=== PATIENT | female | born 1985 | race Caucasian/White ===

== ENCOUNTER 2018-10-22 09:03 | Emergency (ER) | payer BC ==
--- NOTE | 2018-10-22 09:19 | ED ---
Abdominal Pain/Female - HPI Summary HPI Summary: The patient is a 32 y/o F presenting to [facility] accompanied by with RLQ abdominal pain starting this morning at 0100. She reports that yesterday she was experiencing diffuse pain in the lower abdomen with chills and nausea that persisted throughout the night, and then early this morning she woke up with RLQ cramping pain. There was improvement in the pain throughout the night as around 0700 the cramping lessened more into a pressure, but the pain radiates to the right lower back. Currently, the pressure pain is rated 1/10 in severity. There is mild aggravation of the pain with sitting and riding in the car over bumps in the road, and alleviation of the pain with standing. She additionally c/o possible constipation with last BM two days ago and decreased appetite. She denies any fever, erythema of eyes, sore throat, CP, SOB, cough, vomiting, diarrhea, blood in stool, increased urinary frequency, dysuria, hematuria, vaginal discharge, myalgia, edema, rash, or dizziness. Her PCP recommended she come to the ED for further assessment. Notes that she has been self-treating possible yeast infection with OTC medications secondary to vaginal itching and pain with inserting tampons with LNMP last week. No hx of ovarian cyst. PMHx: none. Nonsmoker, no EtOH, no substance use. - History of Current Complaint Chief Complaint: EDAbdPain Stated Complaint: LOWER RIGHT ABDOMINAL PAIN PER PT Time Seen by Provider: 10/22/18 09:09 Hx Obtained From: Patient Onset/Duration: Sudden Onset, Lasting Hours - since 0100, Still Present Timing: Hours Severity Initially: Moderate Severity Currently: Mild Pain Intensity: 1 Pain Scale Used: 0-10 Numeric Location: Discrete At: RLQ Radiates: Yes Radiates to: Back - right lower Character: Other: - pressure Aggravating Factor(s): Other: - sitting, going over bumps while driving in car Alleviating Factor(s): Position - standing Associated Signs and Symptoms: Positive: Back Pain - right lower, Decreased Appetite, Nausea, Other: - POSITIVE: chills, constipation for two days; NEGATIVE : erythema of eyes, sore throat, CP, SOB, myalgia, edema, rash. Negative: Fever , Cough, Chest Pain, Dizzy, Blood in Stool, Urinary Symptoms - no increased frequency, dysuria, or hematuria, Vaginal Discharge, Vomiting, Diarrhea Allergies/Adverse Reactions: Allergies Allergy/AdvReac Type Severity Reaction Status Date / Time No Known Allergies Allergy Verified 10/22/18 09:07 PMH/Surg Hx/FS Hx/Imm Hx Infectious Disease History: No Infectious Disease History: Denies: Traveled Outside the [place] in Last 30 Days Review of Systems Negative: Fever, Chills Negative: Erythema Negative: Sore Throat Negative: Chest Pain Negative: Shortness Of Breath, Cough Positive: Abdominal Pain - RLQ radiates to right lower back, currently a pressure pain, Other - POSITIVE: mild constipation, decreased appetite; NEGATIVE : blood in stool. Negative: Vomiting, Diarrhea, Nausea Negative: dysuria, discharge, frequency, hematuria Negative: Myalgia, Edema Negative: Rash Neurological: Other - NEGATIVE: dizziness All Other Systems Reviewed And Are Negative: Yes Physical Exam - Summary Physical Exam Summary: Constitutional: Well-developed, Well-nourished, Alert. (-) Distressed Skin: Warm, Dry HENT: Normocephalic; Atraumatic Eyes: Conjunctiva normal Neck: Musculoskeletal ROM normal neck. (-) JVD, (-) Stridor, (-) Tracheal deviation Cardio: Rhythm regular, rate normal, Heart sounds normal; Intact distal pulses; The pedal pulses are 2+ and symmetric. Radial pulses are 2+ and symmetric. (-) Murmur Pulmonary/Chest wall: Effort normal. (-) Respiratory distress, (-) Wheezes, (-) Rales Abd: Soft, (+) Very mild RLQ and RUQ tenderness with palpation, (-) Distension, (-) Guarding, (-) Rebound Musculoskeletal: (-) Edema Lymph: (-) Cervical adenopathy Neuro: Alert, Oriented x3 Psych: Mood and affect Normal Triage Information Reviewed: Yes Vital Signs On Initial Exam: Initial Vitals Temp Pulse Resp BP Pulse Ox 98.6 F 69 16 151/91 98 10/22/18 09:05 10/22/18 09:05 10/22/18 09:05 10/22/18 09:05 10/22/18 09:05 Vital Signs Reviewed: Yes Diagnostics - Vital Signs Vital Signs Temp Pulse Resp BP Pulse Ox 10/22/18 09:05 98.6 F 69 16 151/91 98 - Laboratory Result Diagrams: 10/22/18 09:18 10/22/18 09:18 Lab Statement: Any lab studies that have been ordered have been reviewed, and results considered in the medical decision making process. - Ultrasound Transvaginal US Ultrasound Interpretation Completed By: Radiologist Summary of Ultrasound Findings: Impression: Small amount of free intraperitoneal fluid in the right adnexa and cul-de-sac. ED physician has reviewed this report. Gallbladder US Ultrasound Interpretation Completed By: Radiologist Summary of Ultrasound Findings: Impression: Hyperechoic lesion in the anterior right lobe of the liver which likely represents a hemangioma. There may be some minimal sludge in the gallbladder without cholelithiasis or biliary duct dilatation. ED physician has reviewed this report. Appendix US Ultrasound Interpretation Completed By: Radiologist Summary of Ultrasound Findings: Impression: The appendix is slightly enlarged in diameter making the study indeterminate although no discrete tenderness was noted directly over the appendix. Recommend clinical correlation and follow-up. ED physician has reviewed this report. Re-Evaluation - Re-Evaluation First Eval Re-Evaluation Time: 11:55 Change: Improved Comment: We discussed results of today's visit including labs and imaging. While inflammatory markers and imaging are negative, we discussed the remote possibility of early appendicitis, and she agrees to return if symptoms worsen. Abdominal Pain Fem Course/Dx - Course Course Of Treatment: Patient is a 32 y/o F with cc of diffuse lower abd pain with chills and nausea last night that developed into RLQ cramping at 0100 today and improvement in pain with right-sided pressure this morning. Additionally c/o decreased appetite, constipation for two days. Denies any fever , vomiting, increased urinary frequency, dysuria, hematuria, or vaginal discharge. Currently self-treating yeast infection with OTC medications. LNMP: one week ago. No past abd hx. Upon physical exam, the patient exhibits very mild RLQ and RUQ tenderness with palpation. Blood work within normal limits except for glucose of 115 and AST of 12. UA is normal. Transvaginal ultrasound impression: Small amount of free intraperitoneal fluid in the right adnexa and cul-de-sac. Gallbladder ultrasound impression: Hyperechoic lesion in the anterior right lobe of the liver which likely represents a hemangioma. There may be some minimal sludge in the gallbladder without cholelithiasis or biliary duct dilatation. Appendix ultrasound impression: The appendix is slightly enlarged in diameter making the study indeterminate although no discrete tenderness was noted directly over the appendix. Recommend clinical correlation and follow-up. The patient is eating in the ED without any nausea. There are no real constitutional symptoms. During examination, the patient does not have any significant tenderness, and inflammatory markers and imaging are negative at this time, so the suspicion for appendicitis is currently low. However, I did explain the remote possibility for early appendicitis, and she is advised to return if the pain worsens or she develops new symptoms. She will follow up with her PCP in 2-3 days, and she is prescribed Miralax as well as recommendation for increased water intake to relieve constipation. She agrees with this plan. Dx of right lower abdominal pain. - Diagnoses Provider Diagnoses: Right lower quadrant abdominal pain Discharge ED - Sign-Out/Discharge Documenting (check all that apply): Patient Departure - Patient will be discharged home. Patient Received Moderate/Deep Sedation with Procedure: No - Discharge Plan Condition: Good Disposition: HOME Prescriptions: Fluconazole 150 MG TAB* [Diflucan 150 MG TAB*] 150 mg PO ONCE #1 tablet Polyethylene Glycol 3350* [Miralax*] 17 gm PO DAILY #7 packet Patient Education Materials: Constipation (DC), Abdominal Pain (ED) Forms: *Work Release Referrals: Francisco Carter MD [Primary Care Provider] - 3 Days Additional Instructions: Increase your water intake to relieve the constipation you are experiencing. Additionally take the Miralax that has been prescribed to you for relief. Follow up with your primary care provider in 2-3 days. RETURN TO THE EMERGENCY DEPARTMENT FOR ANY NEW OR WORSENING SYMPTOMS. - Billing Disposition and Condition Condition: GOOD Disposition: Home - Attestation Statements Document Initiated by Salima: Yes Documenting Scribe: Twila Garcia Provider For Whom Salima is Documenting (Include Credential): Dr. Dane Still MD Scribe Attestation: Twila Bernardo scribed for Dr. Dane Still MD on 11/06/18 at 1416. Scribe Documentation Reviewed: Yes Provider Attestation: The documentation as recorded by the Twila marinelli accurately reflects the service I personally performed and the decisions made by me, Dr. Dane Still MD Status of Scribe Document: Viewed
[2018-10-22 09:29] LABS: ABS Eosinophils 0.2 10^3/ul (0-0.6); ABS Lymphocytes 2.4 10^3/ul (1.0-4.8); ABS Monocytes 0.5 10^3/ul (0-0.8); ABS Neutrophils 3.7 10^3/ul (1.5-7.7); Eosinophil % 2.2 %; Hematocrit 40 % (35-47); Hemoglobin 13.9 g/dL (12.0-16.0); Lymphocyte % 35.2 %; Mean Corpuscular HGB Conc 35 g/dL (31-36); Mean Corpuscular Hemoglobin 31 pg (27-31); Mean Corpuscular Volume 89 fL (80-97); Mean Platelet Volume 8.8 fL (7.4-10.4); Platelet Count 325 10^3/uL (150-450); Red Blood Count 4.55 10^6 /uL (3.70-4.87); Red Cell Distribution Width 13 % (10-15); White Blood Count 6.8 10^3/uL (3.5-10.8)
[2018-10-22 09:54] LABS: ALT 10 U/L (7-52); AST 12 U/L (13-39); Albumin 4.8 g/dL (3.2-5.2); Albumin/Globulin Ratio 1.8 (1-3); Alkaline Phosphatase 42 U/L (34-104); Anion Gap 6 mmol/L (2-11); BUN/Creatinine Ratio 15.9 (8-20); Blood Urea Nitrogen 11 mg/dL (6-24); C Reactive Protein < 1.00 mg/L (<8.01); CO2 Carbon Dioxide 27 mmol/L (22-32); Calcium 9.9 mg/dL (8.6-10.3); Chloride 105 mmol/L (101-111); EGFR African American 118.6 (>60); Globulin 2.7 g/dL (2-4); Glucose 115 mg/dL (70-100); Sodium 138 mmol/L (135-145); Total Protein 7.5 g/dL (6.4-8.9)
[2018-10-22 10:09] LABS: HCG Pregnancy < 0.60 mIU/mL
[2018-10-22 11:34] LABS: Urine Appearance Clear; Urine Bilirubin Negative (Negative); Urine Blood Negative (Negative); Urine Color Straw; Urine Glucose Negative (Negative); Urine Ketones Negative (Negative); Urine Nitrite Negative (Negative); Urine Protein Negative (Negative); Urine Specific Gravity 1.004 (1.010-1.030); Urine Urobilinogen Negative (Negative)
[2018-10-22 12:01] VITALS: BP 138/88
== END 2018-10-22 12:00 | disposition home or self-care (01) ==
LOC: ED 09:03
DX: R10.31 Right lower quadrant pain (principal); R10.11 Right upper quadrant pain; K76.9 Liver disease, unspecified; M54.5 Low back pain; R11.0 Nausea; R68.83 Chills (without fever); K59.00 Constipation, unspecified
CPT/HCPCS: 36415; 76705; 76830; 80053; 81003; 83605; 83690; 84702; 85025; 86140; 99283

== ENCOUNTER 2021-09-12 18:28 | Inpatient (IN) ==
[2021-09-12] MEDS ORDERED: Buffered Lidocaine 1% SYRIN 1 ml INTRADERM ONE ×2 (18:41→20:00)
[2021-09-12 19:59] LABS: Urine Benzodiazepine Screen None Detected (None Detect); Urine Cannabinoids Screen None Detected (None Detect); Urine Opiates Screen None Detected (None Detect)
[2021-09-12] MEDS ORDERED: Lactated Ringers 1000 ml BAG 1,000 ML IV ONE (20:00)
[2021-09-12] MEDS ORDERED: Lactated Ringers 1000 ml BAG 1,000 ML IV SCH (20:00)
[2021-09-12 21:05] LABS: ABS Lymphocytes 1.1 10^3/ul (1.0-4.8); ABS Neutrophils 13.6 10^3/ul (1.5-7.7); Eosinophil % 0.1 %; Hematocrit 37 % (35-47); Hemoglobin 12.4 g/dL (12.0-16.0); Lymphocyte % 7.3 %; Mean Corpuscular HGB Conc 34 g/dL (31-36); Mean Corpuscular Hemoglobin 32 pg (27-31); Mean Corpuscular Volume 93 fL (80-97); Mean Platelet Volume 10.1 fL (7.4-10.4); Platelet Count 218 10^3/uL (150-450); Red Blood Count 3.92 10^6 /uL (3.70-4.87); Red Cell Distribution Width 14 % (10-15); White Blood Count 15.7 10^3/uL (3.5-10.8)
[2021-09-12] MEDS ORDERED: Lidocaine 1.5% EPI 1:200,000 30 ML SDV ONE (23:23)
[2021-09-12] MEDS ORDERED: OBEPIDURAL (200 ML) 200 ML EPIDURAL ONE (23:30)
[2021-09-13 00:38] LABS: Urine Appearance Cloudy; Urine Bilirubin Negative (Negative); Urine Blood Negative (Negative); Urine Color Yellow; Urine Glucose Negative (Negative); Urine Ketones 2+ (Negative); Urine Nitrite Negative (Negative); Urine Protein Negative (Negative); Urine Specific Gravity 1.013 (1.002-1.030); Urine Urobilinogen Negative (Negative)
[2021-09-13] MEDS ORDERED: Ondansetron 4 mg VIAL 2 MG/ML 2 ml VIAL IV PRN ×2 (00:48→11:52)
[2021-09-13] MEDS ORDERED: Naloxone 0.4 mg VIAL 0.4 mg/ml 1 ml VIAL IV PRN (00:48)
[2021-09-13] MEDS ORDERED: Acetaminophen IV 1 GM/100ML 100 ML IV PRN (00:49)
[2021-09-13] MEDS ORDERED: Lactated Ringers 1000 ml BAG 500 ML IV PRN ×2 (00:52)
[2021-09-13] MEDS ORDERED: Lactated Ringers 1000 ml BAG 1,000 ML IV ONE (00:52)
[2021-09-13] MEDS ORDERED: Phenylephrine 40 mcg/mL 10mL (400mcg) SYRINGE IV PUSH PRN ×2 (00:52)
[2021-09-13] MEDS ORDERED: Sodium Citrate/Citric Acid LIQ 15 ML UDC PO PRN (00:52)
[2021-09-13] MEDS ORDERED: Lactated Ringers 1000 ml BAG 1,000 ML IV SCH ×2 (01:00→17:00)
[2021-09-13] MEDS ORDERED: OBEPIDURAL (200 ML) 200 ML EPIDURAL SCH (01:00)
[2021-09-13 01:02] LABS: Urine Benzodiazepine Screen None Detected (None Detect); Urine Cannabinoids Screen None Detected (None Detect); Urine Opiates Screen None Detected (None Detect)
[2021-09-13] MEDS ORDERED: Oxytocin in LR 20 UNITS/1,000 ML BAG IVPB SCH ×2 (09:00→17:00)
[2021-09-13] MEDS ORDERED: Witch Hazel PAD JAR TOPICAL PRN (16:20)
[2021-09-13] MEDS ORDERED: Lidocaine 1% MPF 5 ML VIAL ONE ×2 (16:48→20:38)
[2021-09-13] MEDS ORDERED: Varicella Virus Vaccine Live 0.5 ML VIAL SUBCUT ONE (16:55)
[2021-09-13] MEDS: Dibucaine 1% OINT 28.35 GM TUBE PR PRN (17:16)
[2021-09-14 06:28] LABS: ABS Lymphocytes 1.2 10^3/ul (1.0-4.8); ABS Neutrophils 13.1 10^3/ul (1.5-7.7); Eosinophil % 0.2 %; Hematocrit 32 % (35-47); Hemoglobin 11.2 g/dL (12.0-16.0); Mean Corpuscular HGB Conc 35 g/dL (31-36); Mean Corpuscular Hemoglobin 32 pg (27-31); Mean Corpuscular Volume 93 fL (80-97); Platelet Count 206 10^3/uL (150-450); Red Blood Count 3.45 10^6 /uL (3.70-4.87); Red Cell Distribution Width 14 % (10-15); White Blood Count 15.4 10^3/uL (3.5-10.8)
[2021-09-14] MEDS ORDERED: Varicella Virus Vaccine Live 0.5 ML VIAL SUBCUT ONE (16:00)
[2021-09-15 09:09] VITALS: BP 104/61
[2021-09-15] MEDS: Dibucaine 1% OINT 28.35 GM TUBE PR PRN (10:25)
== END 2021-09-15 12:10 | disposition home or self-care (01) | DRG 560 ==
LOC: MCHOBOUT 18:28 → MCHOB 20:02
PROVIDERS: ADMIT Midwife; ATTEND Midwife